=== PATIENT | female | born 1975 | race Hispanic/Latino ===

== ENCOUNTER 2018-01-12 13:22 | Inpatient (IN) | payer OTHER ==
[~2018-01-12] VITALS: Ht 170.2 cm; Wt 84.8 kg
[~2018-01-12 13:22] MED LIST: IRON PO; VITAMIN D PO
[2018-01-12] MEDS ORDERED: SODIUM CHLORIDE 0.9% 1000ML 1,000 ML IV STA (14:10)
[2018-01-12] MEDS ORDERED: ASPIRIN 81 MG CHEW TAB PO ONE (14:15)
[2018-01-12 14:40] LABS: BASOPHILS % 0.8 % (0.0-1.0); EOSINOPHILS % 0.4 % (0.0-6.0); LYMPHOCYTES # (AUTO) 1.2 (1.0-3.2); LYMPHOCYTES % 46.4 % (18.0-39.1); MEAN CORPUSCULAR HEMOGLOBIN 14.2 pg (28-32); MEAN CORPUSCULAR HGB CONC 25.4 g/dL (31-35); MEAN CORPUSCULAR VOLUME 55.9 fL (81-99); MONOCYTES # (AUTO) 0.2 (0.2-0.8); MONOCYTES % 9.1 % (4.4-11.3); NEUTROPHILS # (AUTO) 1.1 (2.1-6.9); NEUTROPHILS % 42.9 % (38.7-80.0); PLATELET COUNT 321 x10e3/uL (140-360); RED BLOOD COUNT 3.81 x10e6/uL (3.6-5.1); RED CELL DISTRIBUTION WIDTH 22.2 % (11.7-14.4)
[2018-01-12 14:43] LABS: HEMATOCRIT 21.3 % (34.2-44.1); HEMOGLOBIN 5.4 g/dL (12.0-16.0)
[2018-01-12 14:46] LABS: INR 1.23; PROTHROMBIN TIME 14.6 seconds (11.9-14.5)
[2018-01-12 14:47] LABS: PARTIAL THROMBOPLASTIN TIME 28.1 seconds (23.8-35.5)
[2018-01-12 14:54] LABS: ALBUMIN/GLOBULIN RATIO 1.3 (0.8-2.0); ALKALINE PHOSPHATASE 73 IU/L (40-150); ANION GAP 11.4 mmol/L (8-16); BLOOD UREA NITROGEN 11 mg/dL (7-26); BUN/CREATININE RATIO 16 (6-25); CALCIUM 9.1 mg/dL (8.4-10.2); CARBON DIOXIDE 25 mmol/L (22-29); CHLORIDE 105 mmol/L (98-107); CREATINE KINASE 14 IU/L (29-168); CREATININE, SERUM 0.68 mg/dL (0.57-1.11); EST GLOMERULAR FILTRATION RATE > 60 ML/MIN (60-); GLUCOSE 83 mg/dL (74-118); POTASSIUM 3.4 mmol/L (3.5-5.1); SODIUM 138 mmol/L (136-145)
[2018-01-12 14:55] LABS: ALANINE AMINOTRANSFERASE < 6 IU/L (0-55)
[2018-01-12] MEDS ORDERED: SODIUM CHLORIDE 0.9% 250ML 250 ML IV ONE ×2 (15:00→17:45)
[2018-01-12 15:13] LABS: THYROID STIMULATING HORMONE 1.348 uIU/mL (0.350-4.940)
[2018-01-12 16:09] LABS: CLARITY,URINE CLEAR (CLEAR); COLOR,URINE YELLOW (YELLOW); KETONES,URINE TRACE (NEGATIVE); LEUKOCYTE ESTERASE ,URINE NEGATIVE (NEGATIVE); NITRITE,URINE NEGATIVE (NEGATIVE); PROTEIN,URINE DIPSTICK NEGATIVE (NEGATIVE)
[2018-01-12 16:10] LABS: BILIRUBIN,URINE NEGATIVE (NEGATIVE); URINE UROBILINOGEN 1 mg/dL (0.2 - 1)
[2018-01-12 16:20] LABS: EPITHELIAL CELLS,URINE MODERATE /LPF; MUCUS,URINE MODERATE (RARE); RBC,URINE 0-5 /HPF (0-5); WBC,URINE (MAN) 0-5 /HPF (0-5)
[2018-01-12] MEDS ORDERED: SODIUM CHLORIDE FLUSH 10 ML SYR INJ PRN (17:45)
[2018-01-12 18:20] VITALS: BP 133/77
[2018-01-12 20:00] VITALS: BP 137/78
[2018-01-12 22:36] VITALS: BP 133/77
[2018-01-13] VITALS (8 sets, daily range): BP systolic 107–142; BP diastolic 62–76
[2018-01-13 06:02] LABS: BASOPHILS % 0.6 % (0.0-1.0); EOSINOPHILS % 0.6 % (0.0-6.0); HEMATOCRIT 26.7 % (34.2-44.1); HEMOGLOBIN 7.5 g/dL (12.0-16.0); LYMPHOCYTES # (AUTO) 2.3 (1.0-3.2); LYMPHOCYTES % 43.7 % (18.0-39.1); MEAN CORPUSCULAR HEMOGLOBIN 17.4 pg (28-32); MEAN CORPUSCULAR HGB CONC 28.1 g/dL (31-35); MEAN CORPUSCULAR VOLUME 62.1 fL (81-99); MONOCYTES # (AUTO) 0.5 (0.2-0.8); MONOCYTES % 9.6 % (4.4-11.3); NEUTROPHILS # (AUTO) 2.4 (2.1-6.9); NEUTROPHILS % 45.3 % (38.7-80.0); PLATELET COUNT 310 x10e3/uL (140-360); RED CELL DISTRIBUTION WIDTH 28.8 % (11.7-14.4)
[2018-01-13 07:05] LABS: HYPOCHROMASIA MODERATE; PLATELET ESTIMATE ADEQUATE; PLATELET MORPHOLOGY COMMENT FEW GIANT; POIKILOCYTOSIS MODERATE; RBC MORPHOLOGY COMMENT ABNORMAL
[2018-01-13 07:06] LABS: ANISOCYTOSIS MODE
[2018-01-13] MEDS ORDERED: SODIUM CHLORIDE 0.9% 250ML 250 ML IV ONE (13:15)
[2018-01-13] MEDS ORDERED: SODIUM CHLORIDE 0.9% 250ML 250 ML ONE (18:02)
[2018-01-13 23:12] LABS: HEMATOCRIT 33.1 % (34.2-44.1); HEMOGLOBIN 9.8 g/dL (12.0-16.0)
--- NOTE | 2018-02-25 16:48 | Discharge Summary ---
CHIEF COMPLAINT: Anemia. FINAL DIAGNOSES: 1. Iron deficiency anemia. 2. History of gastric bypass. PROCEDURES: Transfusion packed cells. DISPOSITION: Home. A 42-year-old female, known history of iron deficiency anemia. Brought to the ER with a 2 to 3 week history of progressive weakness, dyspnea upon exertion. She was seen by her PCP the date of admission. Laboratory studies were performed. Patient was found to be anemic. She states she has no active bleeding. She has no heavy menstrual periods. She is status post gastric bypass 9 years ago. She has received transfusions in the past and iron infusions over the past 2 years. She was evaluated in the emergency room, noted to have a hemoglobin down in the 6 range. Further review was conducted, and the patient was admitted to the facility for treatment regarding evidence of profound anemia, status post gastric bypass 9 years ago. Patient will be typed and crossmatched for packed RBCs. Will be requesting a hematology follow. Continue iron infusion. The patient was on the med floor, resting comfortably in no acute distress. She was receiving IV fluids. Receiving the transfusion of her packed cells as they were becoming available. Laboratory studies revealed potassium of 3.4. After a couple of transfusions, her hemoglobin was 7.5. She is waiting on further transfusions. H\T\H's were continued to be monitored. Received a total of 5 units of packed RBCs during her course of stay. She stabilized. Final hemoglobin was normal, and she was able to be discharged back home on January 14, 2018, in stable condition. No equipment or supplies, no drains or Foleys were needed. She will continue on her current diet. Activity level was directed by myself. FOLLOWUP CARE: She will be returning to her PCP in 7 to 10 days, contacting him sooner if any problems or if she has any concerns develop. Dictated By: WILLY Deal Job#: [id number]
== END 2018-01-14 00:41 | disposition home or self-care (01) | DRG 812 ==
LOC: ER 13:22 → ERHOLD 17:38 → MED/SURG3 18:12
PROC: 30233N1 Transfusion of Nonautologous Red Blood Cells into Peripheral Vein, Percutaneous Approach (ICD-10-PCS; principal; 2018-01-12)
DX: D50.9 Iron deficiency anemia, unspecified (principal); Z98.84 Bariatric surgery status
CPT/HCPCS: 36415; 36430; 80053; 81001; 82550; 82553; 84443; 84484; 85014; 85018; 85025; 85610; 85730; 86850; 86900; 86920; 87086; 93005; 99284; J7030; J7050; P9016